=== PATIENT | male | born 1945 | race Caucasian/White ===

== ENCOUNTER 2017-08-10 11:25 | Emergency (ER) | payer OTHER ==
--- NOTE | 2017-08-10 11:34 | EDM.PDOC ---
ED HPI GENERAL MEDICAL PROBLEM - General Chief Complaint: Diabetic Complaint Stated Complaint: INFECTED LEG. DIABETIC [phone] Time Seen by Provider: 08/10/17 11:34 Source of Information: Reports: Patient, RN, RN Notes Reviewed History Limitations: Reports: No Limitations - History of Present Illness INITIAL COMMENTS - FREE TEXT/NARRATIVE: 71yr old male [place] patient presents to ER by POV with c/o non-healing open wounds to B/L lower legs (left > Rt) and weeping clear-yellow fluids from the legs that is "soaking pant legs". Pt states he is diabetic and has had leg edema x4 years, and has "some type of irregular heart beat" but is otherwise healthy. He does not known any of his medications. He last saw a doctor 1 month ago in the [facility]. Today he called a [place] nurse who told him to go to the [facility] in [place], but he came to the ER here because it was closer. He denies fever, chills , cough, or chest pain. He admits to severe fatigue, but yet cannot get any sleep. Admits to orthopnea. Pt lives in [place], but spend the graham in a camper at [place]. Onset: Gradual, Unknown/Unsure Duration: Chronic, Constant, Getting Worse Location: Reports: Lower Extremity, Left, Lower Extremity, Right, Generalized Quality: Reports: Ache Severity: Moderate Improves with: Reports: None Worsens with: Reports: None Associated Symptoms: Reports: No Other Symptoms Left Leg Pain Score (Numeric/FACES): 4 - Related Data Allergies Allergy/AdvReac Type Severity Reaction Status Date / Time No Known Allergies Allergy Verified 08/10/17 11:37 Past Medical History HEENT History: Reports: Impaired Vision Cardiovascular History: Reports: Afib, Other (See Below) (peripheral edema) Endocrine/Metabolic History: Reports: Diabetes, Type II, Obesity/BMI 30+ Social & Family History - Family History Family Medical History: Noncontributory - Living Situation & Occupation Occupation: Disabled ED ROS GENERAL - Review of Systems Review Of Systems: ROS reveals no pertinent complaints other than HPI. ED EXAM, GENERAL - Physical Exam Exam: See Below Exam Limited By: No Limitations General Appearance: Alert, Obese, Other (chronically ill appearing) Nose: Normal Inspection Throat/Mouth: Normal Lips, Normal Voice, No Airway Compromise Head: Atraumatic, Normocephalic Neck: Full Range of Motion Respiratory/Chest: No Respiratory Distress, No Accessory Muscle Use, Chest Non- Tender, Decreased Breath Sounds, Crackles, Rales Cardiovascular: Bradycardia, Irregularly Irregular, Other (3+ pitting edema to B /L lower extremities to mid-thigh level) GI/Abdominal: Normal Bowel Sounds, Soft, Non-Tender, No Distention, Other ( benign obese abdomen). No: Guarding, Rigid, Rebound (Male) Exam: Deferred Rectal (Males) Exam: Deferred Back Exam: Normal Inspection Extremities: Normal Range of Motion, Normal Capillary Refill, Pedal Edema, Other (Chronic venous stasis with serous weeping and open superficial ulcerations to B/L lower extremities). No: Tawanna's Sign, Increased Warmth Neurological: Alert, Oriented, Normal Cognition, No Motor/Sensory Deficits Psychiatric: Normal Affect, Normal Mood EKG INTERPRETATION EKG Date: 08/10/17 Time: 12:13 Rhythm: A-Fib Rate (Beats/Min): 47 [place]: Normal P-Wave: Absent QRS: Normal ST-T: Other (non-specific T-wave abnls) QT: Normal Comparison: NA - No Prior EKG Course - Vital Signs Last Recorded V/S: Last Vital Signs Temp 36.4 C 08/10/17 11:33 Pulse 57 L 08/10/17 11:33 Resp 18 08/10/17 11:33 BP 119/56 L 08/10/17 11:33 Pulse Ox 96 08/10/17 11:33 - Orders/Labs/Meds Orders: Active Orders 24 hr Category Date Time Status Cardiac Monitoring [RC] . DIRECTED Care 08/10/17 12:07 Active EKG 12 Lead [EKG Documentation Completion] [RC] STAT Care 08/10/17 12:06 Active Peripheral IV Care [RC] . DIRECTED Care 08/10/17 12:07 Active UA W/MICROSCOPIC [URIN] Stat Lab 08/10/17 12:06 Ordered Sodium Chloride 0.9% [Saline Flush] Med 08/10/17 12:06 Active 10 ml FLUSH ASDIRECTED PRN Peripheral IV Insertion Adult [OM.PC] Stat Oth 08/10/17 12:06 Ordered Medication Orders Sodium Chloride (Saline Flush) 10 ml FLUSH ASDIRECTED PRN PRN Reason: Keep Vein Open Last Admin: 08/10/17 13:38 Dose: 10 ml Labs: Laboratory Tests 08/10/17 08/10/17 08/10/17 Range/Units 12:39 12:39 12:39 WBC 6.7 (5.0-10.0) 10^3/uL RBC 3.21 L (4.6-6.2) 10^6/uL Hgb 10.3 L (14.0-18.0) g/dL Hct 32.1 L (40.0-54.0) % MCV 100.0 (80-100) fL MCH 32.1 (27.0-34.0) pg MCHC 32.1 L (33.0-35.0) g/dL Plt Count 151 (150-450) 10^3/uL Neut % (Auto) 74.7 (42.2-75.2) % Lymph % (Auto) 12.8 L (20.5-50.1) % Chambers % (Auto) 9.2 H (2-8) % Eos % (Auto) 3.0 (1.0-3.0) % Baso % (Auto) 0.3 (0.0-1.0) % PT 13.8 H (9.0-12.0) SEC INR 1.4 H (0.9-1.2) APTT 38.4 H (22.0-34.0) SEC Sodium 137 (135-145) mmol/L Potassium 3.7 (3.6-5.0) mmol/L Chloride 103 (101-111) mmol/L Carbon Dioxide 27.0 (21.0-31.0) mmol/L Anion Gap 10.7 BUN 18 (7-18) mg/dL Creatinine 1.1 (0.6-1.3) mg/dL Est Cr Clr Drug Dosing 68.59 mL/min Estimated GFR (MDRD) > 60 BUN/Creatinine Ratio 16.36 Glucose 182 H (74-105) mg/dL Calcium 8.5 (8.4-10.2) mg/dl Magnesium 1.9 (1.8-2.5) mg/dL Total Bilirubin 0.8 (0.2-1.0) mg/dL AST 18 (10-42) IU/L ALT 16 (10-60) IU/L Alkaline Phosphatase 116 (42-121) IU/L Troponin I < 0.02 (0.00-0.02) ng/ml B-Natriuretic Peptide 356 H (0-100) pg/ml Total Protein 6.2 L (6.7-8.2) g/dl Albumin 3.6 (3.2-5.5) g/dl Globulin 2.6 Albumin/Globulin Ratio 1.38 TSH, Ultra Sensitive (0.45-5.33) uIu/mL 08/10/17 Range/Units 12:39 WBC (5.0-10.0) 10^3/uL RBC (4.6-6.2) 10^6/uL Hgb (14.0-18.0) g/dL Hct (40.0-54.0) % MCV (80-100) fL MCH (27.0-34.0) pg MCHC (33.0-35.0) g/dL Plt Count (150-450) 10^3/uL Neut % (Auto) (42.2-75.2) % Lymph % (Auto) (20.5-50.1) % Chambers % (Auto) (2-8) % Eos % (Auto) (1.0-3.0) % Baso % (Auto) (0.0-1.0) % PT (9.0-12.0) SEC INR (0.9-1.2) APTT (22.0-34.0) SEC Sodium (135-145) mmol/L Potassium (3.6-5.0) mmol/L Chloride (101-111) mmol/L Carbon Dioxide (21.0-31.0) mmol/L Anion Gap BUN (7-18) mg/dL Creatinine (0.6-1.3) mg/dL Est Cr Clr Drug Dosing mL/min Estimated GFR (MDRD) BUN/Creatinine Ratio Glucose (74-105) mg/dL Calcium (8.4-10.2) mg/dl Magnesium (1.8-2.5) mg/dL Total Bilirubin (0.2-1.0) mg/dL AST (10-42) IU/L ALT (10-60) IU/L Alkaline Phosphatase (42-121) IU/L Troponin I (0.00-0.02) ng/ml B-Natriuretic Peptide (0-100) pg/ml Total Protein (6.7-8.2) g/dl Albumin (3.2-5.5) g/dl Globulin Albumin/Globulin Ratio TSH, Ultra Sensitive 1.61 (0.45-5.33) uIu/mL Meds: Medications Generic Name Dose Route Start Last Admin Trade Name Freq PRN Reason Stop Dose Admin Sodium Chloride 10 ml 08/10/17 12:06 08/10/17 13:38 Saline Flush FLUSH 10 ml ASDIRECTED PRN Administration Keep Vein Open - Radiology Interpretation Free Text/Narrative:: CXR: cardiomegaly, see Rad. report. - Re-Assessments/Exams Free Text/Narrative Re-Assessment/Exam: 08/10/17 13:[address] [facility] and spoke to the medicaid service coordinator. She states there is no cardiology services available at this time, and the pt should be sent to a closer facility that has cardiology available. The pt then refuses ambulance transfer to [facility] and chooses to leave AMA, stating that he is aware of the risks, and also is aware of his rights to leave if he chooses. He state he will take himself to [facility] in [place]. Departure - Departure Time of Disposition: 13:59 Disposition: Home, Self-Care 01 Condition: Fair Clinical Impression: Peripheral edema, Chronic atrial fibrillation, Bradycardia Bilateral leg ulcer Qualifiers: Non-pressure ulcer stage: limited to breakdown of skin Qualified Code(s): L97.911 - Non-pressure chronic ulcer of unspecified part of right lower leg limited to breakdown of skin - Discharge Information Instructions: Bradycardia, Adult, Edema, [id number] Forms: ED Department Discharge, Refusal of Care AMA Additional Instructions: Go to [facility] Emergency [facility] in [place]. - My Orders Last 24 Hours: My Active Orders 08/10/17 12:06 EKG 12 Lead [EKG Documentation Completion] [RC] STAT UA W/MICROSCOPIC [URIN] Stat Sodium Chloride 0.9% [Saline Flush] 10 ml FLUSH ASDIRECTED PRN Peripheral IV Insertion Adult [OM.PC] Stat 08/10/17 12:07 Cardiac Monitoring [RC] . DIRECTED Peripheral IV Care [RC] . DIRECTED - Assessment/Plan Last 24 Hours: My Active Orders 08/10/17 12:06 EKG 12 Lead [EKG Documentation Completion] [RC] STAT UA W/MICROSCOPIC [URIN] Stat Sodium Chloride 0.9% [Saline Flush] 10 ml FLUSH ASDIRECTED PRN Peripheral IV Insertion Adult [OM.PC] Stat 08/10/17 12:07 Cardiac Monitoring [RC] . DIRECTED Peripheral IV Care [RC] . DIRECTED
[2017-08-10] MEDS ORDERED: Sodium Chloride 0.9% 10 ML Syringe FLUSH PRN (12:06)
--- NOTE | 2017-08-10 12:44 | CR ---
Clinical history: 71-year-old large male emergency department complaining of shortness of breath. Interpretation: Upright AP portable chest film confirms abnormally enlarged cardiac silhouette (no previous films imm ediately available for comparison). Cardiomyopathy? Pericardial effusion? Generalized shaggy accentuation of the bronchovascular markings but no alveolar edema or dependent pl eural fluid accumulation. Patchy linear atelectasis left base and some lingular atelectasis/fibrosis. No lung mass, hilar lymphadenopathy or focal lobar pneumonia.
[2017-08-10 13:11] LABS: CHLORIDE,CL 103 mmol/L (101-111); SODIUM,NA 137 mmol/L (135-145)
--- NOTE | 2017-08-15 13:13 | EKG ---
08/10/2017 - CHELA BALDWIN - TIME: 12:13 a.m. FINDINGS: As per my reading, bradycardia with irregularities at 47. MOD /[id number]
== END 2017-08-10 14:12 | disposition home or self-care (01) ==
LOC: DL.ED 11:25
DX: I48.2 Chronic atrial fibrillation (principal); L97.911 Non-pressure chronic ulcer of unspecified part of right lower leg limited to breakdown of skin; R00.1 Bradycardia, unspecified; E11.9 Type 2 diabetes mellitus without complications
CPT/HCPCS: 36415; 71045; 80053; 83735; 83880; 84443; 84484; 85025; 85610; 85730; 93005; 93010; 99285; J7050; 99284